=== PATIENT | male | born 1985 | race African-American/Black ===

== ENCOUNTER 2016-09-18 11:38 | Emergency (ER) | payer OTHER ==
[2016-09-18] MEDS ORDERED: ORPHENADRINE 60 MG/2 ML AMP ONE (14:21)
[2016-09-18] MEDS ORDERED: CYCLOBENZAPRINE 10 MG TAB ONE (14:29)
== END 2016-09-18 14:59 | disposition home or self-care (01) ==
LOC: ER 11:59
DX: S39.012A Strain of muscle, fascia and tendon of lower back, initial encounter (principal); M54.42 Lumbago with sciatica, left side; F17.210 Nicotine dependence, cigarettes, uncomplicated
CPT/HCPCS: 72100